=== PATIENT | male | born 1990 | race Hispanic/Latino ===

== ENCOUNTER → 2018-11-03 | Outpatient (REF) | payer OTHER ==
[2018-11-03 12:08] LABS: SEMEN APPEARANCE OPAQUE (OPAQUE); SEMEN VISCOSITY VISCOUS (LIQUID); SEMEN VOLUME 3.2 ML (2.0-5.0); SEMEN WBC >1 M/ml (<=1 M/ml); SEMEN pH 8.5 (7.0-8.0)
== END ==
LOC: M LAB REF 11:38
PROVIDERS: ATTEND Obstetrics & Gynecology
DX: N46.8 Other male infertility (principal)

== ENCOUNTER 2019-01-29 18:59 | Inpatient (IN) | payer OTHER ==
[~2019-01-29] VITALS: Ht 165.1 cm; Wt 73.6 kg
[2019-01-29] MEDS ORDERED: LEXA5TAB13 PO (19:54)
[2019-01-29 20:17] LABS: VENOUS HCO3 25.6 MEQ/L (23.0-27.0); VENOUS PARTIAL PRESSURE CO2 49.3 mmHg (38.0-50.0); VENOUS PARTIAL PRESSURE O2 41.5 mmHg (30.0-50.0); VENOUS PH 7.333 UNITS (7.330-7.430); VENOUS TOTAL CO2 27.1 MEQ/L (24.0-28.0)
[2019-01-29 20:20] LABS: HEMATOCRIT 46.8 % (42.0-52.0); HEMOGLOBIN 16.7 g/dl (13.5-17.5); MEAN CORPUSCULAR HEMOGLOBIN 32.1 pg (27.0-33.0); MEAN CORPUSCULAR HGB CONC 35.7 g/dl (32.0-36.5); MEAN CORPUSCULAR VOLUME 89.8 fl (80.0-96.0); PLATELET COUNT, AUTOMATED 311 10^3/uL (150-450); RED BLOOD COUNT 5.21 10^6/uL (4.30-6.10); WHITE BLOOD COUNT 20.8 10^3/uL (4.0-10.0)
[2019-01-29 20:31] LABS: AMPHETAMINES LEVEL URINE NEGATIVE (NEGATIVE); BARBITURATES URINE NEGATIVE (NEGATIVE); BENZODIAZEPINES URINE NEGATIVE (NEGATIVE); CANNABINOIDS URINE NEGATIVE (NEGATIVE); COCAINE METABOLITE URINE NEGATIVE (NEGATIVE); METHADONE URINE NEGATIVE (NEGATIVE); OPIATES URINE NEGATIVE (NEGATIVE); PHENCYCLIDINE URINE NEGATIVE (NEGATIVE)
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
[2019-01-29 20:43] LABS: ACETAMINOPHEN LEVEL < 2.0 UG/ML (10.0-30.0); ALBUMIN 4.7 GM/DL (3.2-5.2); ALT/SGPT 36 U/L (12-78); BILIRUBIN,DIRECT 0.4 MG/DL (0.0-0.2); BLOOD UREA NITROGEN 23 MG/DL (7-18); CALCIUM LEVEL 9.8 MG/DL (8.5-10.1); CARBON DIOXIDE LEVEL 28 MEQ/L (21-32); CHLORIDE LEVEL 106 MEQ/L (98-107); CREATININE FOR GFR 1.07 MG/DL (0.70-1.30); ETHYL ALCOHOL (ETHANOL) < 0.003 % (0.000-0.010); GLOMERULAR FILTRATION RATE > 60.0 (>60); GLUCOSE, FASTING 89 MG/DL (70-100); SALICYLATE LEVEL < 1.7 MG/DL (5.0-30.0); SODIUM LEVEL 139 MEQ/L (136-145); THYROID STIMULATING HORMONE 0.666 uIU/ML (0.358-3.740); TOTAL PROTEIN 8.2 GM/DL (6.4-8.2)
--- NOTE | 2019-01-29 20:58 | ECGEPIP ---
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
[2019-01-29 21:38] LABS: BASO # 0.1 10^3/uL (0.0-0.2); BASO % 0.2 % (0.0-1.0); EOS % 0.1 % (0.0-3.0); LYMPH # 1.8 10^3/uL (1.5-6.5); LYMPH % 8.5 % (24.0-44.0); MONO # 1.1 10^3/uL (0.0-0.8); MONO % 5.4 % (0.0-5.0); NEUTROPHILS # 17.4 10^3/uL (1.8-7.7)
[2019-01-29 23:29] LABS: BASO # 0.1 10^3/uL (0.0-0.2); BASO % 0.3 % (0.0-1.0); EOS % 0.2 % (0.0-3.0); HEMATOCRIT 45.1 % (42.0-52.0); LYMPH # 3.4 10^3/uL (1.5-6.5); MEAN CORPUSCULAR HEMOGLOBIN 30.9 pg (27.0-33.0); MEAN CORPUSCULAR HGB CONC 35.5 g/dl (32.0-36.5); MEAN CORPUSCULAR VOLUME 87.1 fl (80.0-96.0); MONO # 1.1 10^3/uL (0.0-0.8); MONO % 6.6 % (0.0-5.0); NEUTROPHILS # 12.3 10^3/uL (1.8-7.7); NEUTROPHILS % 72.5 % (36.0-66.0); PLATELET COUNT, AUTOMATED 312 10^3/uL (150-450); RED BLOOD COUNT 5.18 10^6/uL (4.30-6.10); WHITE BLOOD COUNT 16.9 10^3/uL (4.0-10.0)
[2019-01-30 06:27] LABS: BASO % 0.3 % (0.0-1.0); EOS # 0.1 10^3/uL (0.0-0.50); EOS % 0.6 % (0.0-3.0); HEMATOCRIT 45.1 % (42.0-52.0); HEMOGLOBIN 15.9 g/dl (13.5-17.5); LYMPH # 2.8 10^3/uL (1.5-6.5); LYMPH % 20.6 % (24.0-44.0); MEAN CORPUSCULAR HEMOGLOBIN 31.1 pg (27.0-33.0); MEAN CORPUSCULAR HGB CONC 35.3 g/dl (32.0-36.5); MEAN CORPUSCULAR VOLUME 88.3 fl (80.0-96.0); MONO # 1.1 10^3/uL (0.0-0.8); MONO % 7.9 % (0.0-5.0); NEUTROPHILS # 9.7 10^3/uL (1.8-7.7); NEUTROPHILS % 70.2 % (36.0-66.0); PLATELET COUNT, AUTOMATED 289 10^3/uL (150-450); RED BLOOD COUNT 5.11 10^6/uL (4.30-6.10); WHITE BLOOD COUNT 13.8 10^3/uL (4.0-10.0)
--- NOTE | 2019-01-30 09:32 | REP ---
Right humerus two views : There is no fracture or dislocation. Mineralization and joint spaces are normal. There are no calcifications or foreign bodies. Impression: Negative right humerus . Electronically Signed by Panfilo Carlson MD 01/30/2019 09:23 A
--- NOTE | 2019-01-30 09:33 | REP ---
Right shoulder three views : There is no fracture or dislocation. Mineralization and joint spaces are normal. There are no calcifications or foreign bodies. Impression: Negative right shoulder . Electronically Signed by Panfilo Carlson MD 01/30/2019 09:24 A
[2019-01-30] MEDS ORDERED: MOM 30ML SUSPENSION UDC PO PRN (12:15)
[2019-01-30] MEDS ORDERED: ACETAMINOPHEN TAB 650MG DOSE (2X325MG) PO PRN (12:15)
[2019-01-30] MEDS ORDERED: MAALOX 30 ML SUSP *UDC PO PRN (12:15)
[2019-01-30] MEDS ORDERED: ESCI10TA2 PO (12:55)
[2019-01-30 13:49] VITALS: BP 129/74
[2019-01-30] MEDS: IBUPROFEN 400 MG TAB PO PRN (18:26)
--- NOTE | 2019-01-30 22:06 | HPE ---
DATE OF ADMISSION: 01/30/2019 HISTORY OF THE PRESENT ILLNESS: Please refer to psychiatric history and evaluation for further details on this admission. This examination and history is intended for medical issues which may need treatment, followup, or consult on this 28-year-old male. ALLERGIES: No known allergies. PRIMARY CARE PROVIDER: [facility] SOCIAL HISTORY: He is and currently a soldier, active duty, stationed at [employer]. Ethyl alcohol (EtOH): At least once a month. Smokes: None. Recreational drug use: None. PAST MEDICAL HISTORY: Negative. PAST SURGICAL HISTORY: Negative. HOME MEDICATIONS: Escitalopram 10 mg by mouth daily. LABORATORY STUDIES: Initial white count was 20.8 and this morning was 13.8. Hemoglobin 15.9, hematocrit 45.1, platelets 289. Electrolytes were normal. BUN was 23, creatinine 1.07, total bilirubin was 2.0, direct bilirubin was 0.4. Will recheck in the morning. Toxicology was negative. He had a blood gas in the emergency room (ER) after inhaling nitrogen until he passed out. He had a VBG; pH was 7.333. He fell after he passed out. CT of the head - no evidence of fracture. No evidence of bleed. Right shoulder x-ray was negative - no fracture or dislocation. Right humerus x-ray was negative - no fracture or dislocation. EKG: Showed sinus rhythm, rate of 89. FAMILY HISTORY: Mother is alive and well, father is alive and well. REVIEW OF SYSTEMS: Ten-systems review was done. His only complaint was a scrape and bruise on his right upper arm where he fell. PHYSICAL EXAMINATION: A 28-year-old cooperative male in no acute distress. Height 65 inches, weight 70.45 kilograms, body mass index (BMI) 25.1. Blood pressure 129/74, pulse 90, respirations 18, temperature 98.2, oxygen saturation (O2 sat) 98% on room air. The patient is alert and oriented times three. Pupils equal and reactive to light. Extraocular movements intact. Cornea and sclerae clear. Conjunctivae is normal. No facial asymmetry. Pharynx: Tongue and gums pink and moist. Tongue is midline. Neck is supple without lymphadenopathy. No thyromegaly. No goiter. Carotids 2+ without bruits. Chest is clear to auscultation without wheeze or retractions. Heart is regular. Abdomen: Benign. Bowel sounds positive. Genital/Rectal: Not done. Extremities: Show full range of motion. No cyanosis, clubbing or edema. Skin is warm and dry. Hand registered medical transcriptionist equal. Bruise with slight superficial abrasion right upper arm. IMPRESSION AND PLAN: Psychiatric plan per psychiatry. Ibuprofen 400 mg by mouth every 6 hours as needed for pain No other acute medical issues.
[2019-01-31 06:39] VITALS: BP 113/70
[2019-01-31 07:09] LABS: BASO % 0.2 % (0.0-1.0); EOS # 0.2 10^3/uL (0.0-0.50); EOS % 1.5 % (0.0-3.0); HEMATOCRIT 45.6 % (42.0-52.0); HEMOGLOBIN 15.9 g/dl (13.5-17.5); LYMPH # 3.3 10^3/uL (1.5-6.5); LYMPH % 34.4 % (24.0-44.0); MEAN CORPUSCULAR HEMOGLOBIN 31.7 pg (27.0-33.0); MEAN CORPUSCULAR HGB CONC 34.9 g/dl (32.0-36.5); MONO # 0.6 10^3/uL (0.0-0.8); NEUTROPHILS # 5.6 10^3/uL (1.8-7.7); NEUTROPHILS % 57.5 % (36.0-66.0); PLATELET COUNT, AUTOMATED 295 10^3/uL (150-450); RED BLOOD COUNT 5.01 10^6/uL (4.30-6.10); WHITE BLOOD COUNT 9.7 10^3/uL (4.0-10.0)
[2019-01-31 07:37] LABS: ALBUMIN 4.1 GM/DL (3.2-5.2); ALT/SGPT 29 U/L (12-78); BILIRUBIN,TOTAL 1.5 MG/DL (0.2-1.0); BLOOD UREA NITROGEN 24 MG/DL (7-18); CALCIUM LEVEL 9.1 MG/DL (8.5-10.1); CARBON DIOXIDE LEVEL 29 MEQ/L (21-32); CHLORIDE LEVEL 105 MEQ/L (98-107); CREATININE FOR GFR 0.95 MG/DL (0.70-1.30); GLOMERULAR FILTRATION RATE > 60.0 (>60); GLUCOSE, FASTING 91 MG/DL (70-100); POTASSIUM SERUM 4.1 MEQ/L (3.5-5.1); SODIUM LEVEL 139 MEQ/L (136-145); TOTAL PROTEIN 7.5 GM/DL (6.4-8.2)
[2019-01-31] MEDS ORDERED: hydrOXYzine 25 MG TAB PO PRN (12:15)
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
[2019-01-31] MEDS ORDERED: FLUoxetine 10 MG CAP PO ONE (12:30)
[2019-01-31] MEDS: IBUPROFEN 400 MG TAB PO PRN (20:52)
--- NOTE | 2019-01-31 21:00 | CR.PDOC ---
General Date of Consultation: Jan 31, 2019 Attending Physician: KEVIN SHIRLEY DO Consultation REASON FOR CONSULTATION/CHIEF COMPLAINT: Leukocytosis HISTORY OF PRESENT ILLNESS: Patient is 28 years old male past medical history of anxiety and depression was admitted to the hospital after a suicidal attempt. Patient stated that he doesn't have any problem with his health except anxiety. In the hospital patient was found to have increased level of white blood count. Patient denies fever, chills, nausea, vomiting, diarrhea or dysuria ALLERGIES: Please see below. HOME MEDICATIONS: Please see below. PAST MEDICAL HISTORY: 1. Anxiety. 2. Depression PAST SURGICAL HISTORY: None FAMILY HISTORY: Father: Healthy Mother: Healthy Siblings: Healthy Hereditary Diseases: None SOCIAL HISTORY: Tobacco use: None ETOH: None Illicit drug use: None IV drug use: None REVIEW OF SYSTEMS: 10 point review of system negative except what mentioned in HPI PHYSICAL EXAMINATION: VITAL SIGNS: Please see below. HEENT: Normocephalic, atraumatic. EOMI. No scleral icterus. Moist mucous membranes. No pharyngeal erythema or uvular deviation. Neck: No JVD, lymphadenopathy, or thyromegaly. Cardiac: RRR, Normal S1 and S2, No murmurs, gallops, rubs. Pulm: Clear to auscultation b/l. No wheezing, crackles, rhonchi Abd: Bowel Sounds present. Abdomen is soft, non-tender, non-distended. No guarding, rebound tenderness, or rigidity. No hepatosplenomegaly. No masses or eccymosis. Ext: No edema or cyanosis Neuro: AOx3 Strength +5/5 BUE and BLE. CN 3-12 grossly intact. LABORATORY DATA: Please see below. ASSESSMENT/PLAN: Patient is 28 years old male with past medical history of anxiety and depression was present to the hospital suicidal attempt. Leukocytosis Most likely reactive. Patient does not have any constitutional symptoms, no fever, no chills, no hypotension. Continue to follow clinically Depression/anxiety Defer treatment to psych team Mylanta QTC prolongation on EKG Vital Signs/I&O Vital Signs Date Time Temp Pulse Resp B/P (MAP) Pulse Ox O2 Delivery O2 Flow Rate FiO2 01/31/19 08:26 Room Air 01/31/19 06:39 97.8 66 18 113/70 (84) 01/30/19 13:49 98 Laboratory Data Labs 24H Laboratory Tests 2 01/31/19 06:17: Immature Granulocyte % (Auto) 0.4, White Blood Count 9.7, Red Blood Count 5.01, Hemoglobin 15.9, Hematocrit 45.6, Mean Corpuscular Volume 91.0, Mean Corpuscular Hemoglobin 31.7, Mean Corpuscular Hemoglobin Concent 34.9, Red Cell Distribution Width 12.5, Platelet Count 295, Neutrophils (%) (Auto) 57.5, Lymphocytes (%) (Auto) 34.4, Monocytes (%) (Auto) 6.0H, Eosinophils (%) (Auto) 1.5, Basophils (%) (Auto) 0.2, Neutrophils # (Auto) 5.6, Lymphocytes # (Auto) 3.3, Monocytes # (Auto) 0.6, Eosinophils # (Auto) 0.2, Basophils # (Auto) 0.0, Nucleated Red Blood Cells % (auto) 0.0, Anion Gap 5L, Glomerular Filtration Rate > 60.0, Blood Urea Nitrogen 24H, Creatinine 0.95, Sodium Level 139, Potassium Level 4.1, Chloride Level 105, Carbon Dioxide Level 29, Calcium Level 9.1, Aspartate Amino Transf (AST/SGOT) 21, Alanine Aminotransferase (ALT/SGPT) 29, Alkaline Phosphatase 92, Total Bilirubin 1.5H, Total Protein 7.5, Albumin 4.1, Albumin/Globulin Ratio 1.21 CBC/BMP Laboratory Tests 01/31/19 06:17 Red Blood Count 5.01, Mean Corpuscular Volume 91.0, Mean Corpuscular Hemoglobin 31.7, Mean Corpuscular Hemoglobin Concent 34.9, Red Cell Distribution Width 12.5, Neutrophils (%) (Auto) 57.5, Lymphocytes (%) (Auto) 34.4, Monocytes (%) (Auto) 6.0 H, Eosinophils (%) (Auto) 1.5, Basophils (%) (Auto) 0.2, Neutrophils # (Auto) 5.6, Lymphocytes # (Auto) 3.3, Monocytes # (Auto) 0.6, Eosinophils # (Auto) 0.2, Basophils # (Auto) 0.0, Calcium Level 9.1, Aspartate Amino Transf (AST/SGOT) 21, Alanine Aminotransferase (ALT/SGPT) 29, Alkaline Phosphatase 92, Total Bilirubin 1.5 H, Total Protein 7.5, Albumin 4.1 Allergies Coded Allergies: No Known Allergies (Unverified , 01/29/19) Home Medications Scheduled Escitalopram Oxalate (Escitalopram Oxalate) 10 Mg Tablet, 10 MG PO QHS, (Reported) KEVIN SHIRLEY DO Jan 31, 2019 21:00
[2019-02-01 06:38] VITALS: BP 122/67
[2019-02-01] MEDS: FLUoxetine 10 MG CAP PO SCH (09:26)
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
[2019-02-01 18:00] VITALS: BP 133/86
[2019-02-01] MEDS ORDERED: traZODone 50 MG TAB PO PRN (21:00)
[2019-02-02 06:38] VITALS: BP 134/66
[2019-02-02] MEDS: FLUoxetine 10 MG CAP PO SCH (08:36)
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
[2019-02-02 17:41] VITALS: BP 122/81
[2019-02-02] MEDS: traZODone 100 MG TAB PO PRN (20:17)
[2019-02-03 07:15] VITALS: BP 117/61
[2019-02-03] MEDS: FLUoxetine 10 MG CAP PO SCH (08:21)
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
[2019-02-03 17:51] VITALS: BP 120/79
[2019-02-03] MEDS: traZODone 100 MG TAB PO PRN (20:54)
[2019-02-04 06:27] VITALS: BP 153/68
[2019-02-04] MEDS: FLUoxetine 10 MG CAP PO SCH (09:06)
[2019-02-04 17:40] VITALS: BP 129/60
[2019-02-04] MEDS: traZODone 100 MG TAB PO PRN (21:09)
[2019-02-05 06:37] VITALS: BP 129/76
[2019-02-05] MEDS: FLUoxetine 10 MG CAP PO SCH (08:43)
[2019-02-05 16:53] VITALS: BP 120/67
[2019-02-05] MEDS: traZODone 100 MG TAB PO PRN (21:26)
[2019-02-06 06:47] VITALS: BP 108/74
[2019-02-06] MEDS: FLUoxetine 10 MG CAP PO SCH (08:18)
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
[2019-02-06 16:33] VITALS: BP 131/74
[2019-02-06] MEDS: traZODone 100 MG TAB PO PRN (20:41)
[2019-02-07 06:55] VITALS: BP 107/52
[2019-02-07] MEDS: FLUoxetine 10 MG CAP PO SCH (08:27)
[2019-02-07] MEDS ORDERED: TRAZ10TA PO (08:46)
[2019-02-07] MEDS ORDERED: FLUO10CA8 PO (08:46)
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
== END 2019-02-07 12:03 | disposition home or self-care (01) | DRG 882 ==
LOC: M ED 18:59 → M ED INP 01-30 12:11 → M PSY 01-30 13:20
PROVIDERS: ADMIT Psychiatry & Neurology Psychiatry; ATTEND Psychiatry & Neurology Psychiatry
DX: F43.23 Adjustment disorder with mixed anxiety and depressed mood (principal); F41.1 Generalized anxiety disorder; Z59.8 Other problems related to housing and economic circumstances; Z63.5 Disruption of family by separation and divorce